=== PATIENT | female | born 1965 | race Hispanic/Latino ===

== ENCOUNTER 2021-09-07 12:07 | Day surgery (SDC) | payer SELFPAY ==
[2021-09-07] MEDS ORDERED: Ringers Lactate 1,000 ML IV ONE ×2 (12:13→15:19)
[2021-09-07] MEDS ORDERED: CEFAZOLIN/SWI 2gm 2 GM/20 ML SYR ONE (12:29)
[2021-09-07] MEDS ORDERED: ACETAMINOPHEN 500 MG TAB ONE (13:26)
[2021-09-07] MEDS ORDERED: CELECOXIB 100 MG CAPSULE ONE (13:26)
[2021-09-07] MEDS ORDERED: LIDOCAINE 1% W/EPI 1:100,000 10 ML VIAL ONE (13:54)
[2021-09-07] MEDS ORDERED: propofoL 200 MG/20 ML VIAL IV ONE (13:58)
[2021-09-07] MEDS ORDERED: ONDANSETRON 4 MG/2 ML VIAL ONE (13:59)
[2021-09-07] MEDS ORDERED: FENTANYL CITR 100 MCG/2 ML ONE (13:59)
[2021-09-07] MEDS ORDERED: MIDAZOLAM HCL 2 MG/2 ML INJ ONE (13:59)
[2021-09-07] MEDS ORDERED: dexAMETHasone 10 MG/ML VIAL ONE (13:59)
[2021-09-07] MEDS ORDERED: LIDOCAINE 2% MPF 5 ML VIAL ONE (13:59)
[2021-09-07] MEDS ORDERED: NS 0.9% VIAL 10 ML ONE (14:51)
[2021-09-07] MEDS ORDERED: EPHEDRINE SULF 50 MG/ML VIAL ONE (14:51)
[2021-09-07] MEDS ORDERED: KETOROLAC 30 MG/ML INJ ONE (15:09)
[2021-09-07] MEDS ORDERED: NA CHLORIDE 0.9% 500 ML ONE (15:20)
--- NOTE | 2021-09-08 02:15 | OP ---
Date of Procedure: 09/07/2021 Surgeon: Argentina Rice MD Sourcing Internship: Charline Loving. Preoperative Diagnosis: Left Bartholin's gland cyst. Postoperative Diagnosis: Left Bartholin's gland cyst, 5 cm in size. Procedure Performed: Left Bartholin's gland partial excision and marsupialization. Anesthesia: General endotracheal. Estimated Blood Loss: Minimal. Specimens: Bartholin's gland cyst wall, at least 1/3rd of it was excised as the gland was large. Th ere was foul smelling discharge, which also was drained and irrigated. Estimated Blood Loss: Minimal. Complications: No complications. Drains: No drains. Packing was left in the gland after morcellation. Red rubber catheter was used to drain the bladder, no Garcia was left. Findings: After the patient was evaluated in the office and she was found to have a large 5 cm cyst, this is disclosed to the patient and the patient wanted to get this removed and excised. As she is over the age of 47, risk of adenocarcinoma in the Bartholin's gland was also reviewed, although it wa s extremely small. She was offered surgery and that she never had any recurrent infection s in this area. Procedure In Detail: After she was consented, she was brought to the OR, 2 g of Ancef were given. S CDs were placed. Time-out was done. Abdomen, vulva, vagina, and perineum were prepped and draped in a sterile fashion. She was placed in the dorsal lithotomy position using Jett stirrups after anest hesia. Then, an incision about 2.5 cm was placed on the medial aspect of the inner lip. The Bartholin's gla nd cyst opening was closed at this time. 1% lidocaine with 1:100,000 epinephrine 10 cc was given jennifer und the area of potential incision, incised with a [address] down to the level of the Leoncio holin's gland cyst. Then, the vaginal tissues were held with Allis clamps on either sides. Flaps we re created. Cyst was dissected down and once the majority of the cyst in a circumferential fashion w as all dissected, then I went on to excise the cyst partially. Once the cyst was opened, it was smel ling, it had a strong foul order. The fluid was light brownish and straw-colored. After the complet e aspiration, the rest of the cyst was well examined closely and no evidence of any mass or tumor; ho wever, excision of the cyst would be difficult due to the appearance of inflammation around. So, par tial excision was done and 3 cm of the cyst wall was excised to get a very good sample and probably a lso cut down on the cyst wall. As the cyst was mobilized, it was able to be marsupialized with a con tinuous running 3-0 Vicryl suture in a circumferential fashion. Then packing after thorough irrigati on and suction with normal saline, then 0.25 inch Nu Gauze was used to pack it. Another 10 cc of 1% lidocaine was injected all around. She was recovered from anesthesia, taken to PACU in stable condit ion. She will follow up with me in a week. JOSE CRUZ/TRINIDAD Voice ID: [id number] Report ID: [id number]
== END 2021-09-07 16:45 | disposition home or self-care (01) ==
LOC: OR 12:07
PROVIDERS: ATTEND Obstetrics & Gynecology
PROC: 0U9L0ZZ Drainage of Vestibular Gland, Open Approach (ICD-10-PCS; principal; 2021-09-07 13:30)
DX: N75.0 Cyst of Bartholin's gland (principal); Z20.822 Contact with and (suspected) exposure to COVID-19
CPT/HCPCS: 88304; J0690; J1100; J2250; J2405; J2704; J3010; J7040; J7120; U0003